=== PATIENT | female | born 1990 | race African-American/Black ===

== ENCOUNTER 2021-04-10 07:00 | Emergency (ER) | payer OTHER ==
[~2021-04-10] VITALS: Ht 165.1 cm; Wt 79.8 kg
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
[2021-04-10 07:32] VITALS: BP 124/81
== END 2021-04-10 07:32 | disposition home or self-care (01) ==
LOC: EDUNIT# 07:00 → ER FS 07:04
DX: Z04.1 Encounter for examination and observation following transport accident (principal); Z72.0 Tobacco use
CPT/HCPCS: 99282